=== PATIENT | male | born 1940 | race Caucasian/White ===

== ENCOUNTER 2016-03-24 04:44 | Emergency (ER) | payer BC, MEDICARE ==
[~2016-03-24] VITALS: Ht 188 cm; Wt 85.0 kg
[~2016-03-24 04:44] MED LIST: AGGR20025 PO; ATOR20TA42 PO; HYDR-2768 PO; LORTA5 PO; OMEGCAP21 PO; OMEP20TA39 PO; RAMI10CA35 PO; RAMI5CAP36 PO
[2016-03-24 04:46] VITALS: BP 175/94; PULSE 87; RESP 20; TEMP 97.7; O2SAT 96
[2016-03-24] MEDS ORDERED: ATOR20TA15 PO (04:52)
[2016-03-24] MEDS ORDERED: DIPY25TA25 PO (04:52)
[2016-03-24] MEDS ORDERED: ASCO500C PO (04:53)
[2016-03-24] MEDS ORDERED: HYDR25TA5 PO (04:53)
[2016-03-24] MEDS ORDERED: CALCTAB80 PO (04:53)
[2016-03-24] MEDS ORDERED: GLUC750C PO (04:53)
[2016-03-24] MEDS ORDERED: FISHCAP4 PO (04:54)
[2016-03-24] MEDS ORDERED: AMLO5TAB2 PO (04:54)
[2016-03-24] MEDS ORDERED: OMEP20TA PO (04:54)
[2016-03-24] MEDS ORDERED: MULT1TAB85 PO (04:54)
[2016-03-24] MEDS ORDERED: LOPERAMIDE HCL 2 MG CAP PO ONE (05:00)
[2016-03-24] MEDS ORDERED: ONDANSETRON HCL 4 MG/2 ML VIAL IV ONE (05:00)
[2016-03-24] MEDS ORDERED: DICYCLOMINE HCL 10 MG CAP PO ONE (05:00)
[2016-03-24] MEDS ORDERED: SODIUM CHLOR 0.9% 1000 ML INJ 1,000 ML IV ONE ×2 (05:00)
[2016-03-24 05:42] LABS: AUTOMATED NEUTROPHIL # 10.2 TH/MM3 (1.8-7.7); BASOPHIL % 0.3 % (0.0-2.0); EOSINOPHIL % 0.3 % (0.0-4.0); HEMATOCRIT 50.4 % (39.0-51.0); HEMO FLAGS DIFF FINAL; LYMPH % 4.9 % (9.0-44.0); LYMPHOCYTE # 0.6 TH/MM3 (1.0-4.8); MEAN CELL VOLUME 95.6 FL (80.0-100.0); MEAN CORPUSCULAR HEMOGLOBIN 33.7 PG (27.0-34.0); MEAN CORPUSCULAR HGB CONC 35.3 % (32.0-36.0); MONO % 13.2 % (0.0-8.0); NEUT % 81.3 % (16.0-70.0); PLATELET COUNT 208 TH/MM3 (150-450); RED BLOOD COUNT 5.27 MIL/MM3 (4.50-5.90); RED CELL DISTRIBUTION WIDTH 12.7 % (11.6-17.2); WHITE BLOOD COUNT 12.5 TH/MM3 (4.0-11.0)
[2016-03-24 06:10] LABS: ALKALINE PHOSPHATASE 51 U/L (45-117); TOTAL BILIRUBIN ADULT 1.2 MG/DL (0.2-1.0)
[2016-03-24] MEDS ORDERED: BENT20TA PO (06:12)
[2016-03-24] MEDS ORDERED: LOPE2TAB3 PO (06:12)
[2016-03-24] MEDS ORDERED: ZOFR4TAB3 SL (06:12)
--- NOTE | 2016-03-24 06:12 | PD ---
HPI Chief Complaint: GI Complaint Time Seen by Provider: 04:48 Travel History International Travel<30 days: No Contact w/Intl Traveler<30days: No Traveled to known affect area: No History of Present Illness HPI 75-year-old man who presents emergent [place] nausea vomiting diarrhea ongoing for the past 2 days or so. He ate raw oysters night before the symptoms started. He's had sweats but no definite fever. He said abdominal cramping as well. His a history of an appendectomy. He does still have his gallbladder. No definite sick contacts. No other complaints. He otherwise had been feeling generally well and healthy. Denies any other new or worsening symptoms. No blood in his stool. Patient going to the bathroom about every hour or so. History Past Medical History Narrative Medical Hypertension on hyperlipidemia GERD Influenza Vaccination: No Social History Alcohol Use: Yes (clear rum daily 3-4 oz ) Tobacco Use: No Allergies-Medications (Allergen,Severity, Reaction): Coded Allergies: Contrast Media (Verified Allergy, Severe, Anaphylaxis, 03/24/16) Penicillin (Verified Allergy, Severe, THROAT CLOSES, 03/24/16) Reported Meds & Prescriptions Reported Meds & Active Scripts Active Bentyl (Dicyclomine HCl) 20 Mg Tab 20 Mg PO QID PRN Loperamide (Loperamide HCl) 2 Mg Tab 2 Mg PO DIRECTED PRN One tablet after each loose stool. Not to exceed 8 tablets per day. Zofran Odt (Ondansetron Odt) 4 Mg Tab 4 Mg SL Q8HR PRN May substitute non-ODT form. Reported Multivitamin Men (Multiple Vitamins W/ Minerals) 1 Tab Tab 1 Tab PO DAILY Fish Oil + D3 (Fish Oil-Cholecalciferol) 1,200-1,000 Mg-Unit Cap 1 Cap PO DAILY Omeprazole 20 Mg Tab 20 Mg PO DAILY Amlodipine (Amlodipine Besylate) 5 Mg Tab 5 Mg PO DAILY Vitamin C (Ascorbic Acid) 500 Mg Cap 500 Mg PO Glucosamine (Glucosamine Sulfate) 750 Mg Cap 750 Mg PO DAILY Calcium 1000 + D (Calcium Carbonate-Cholecalciferol) 1,000-800 Mg-Unit Tab 1 Tab PO Hydrochlorothiazide 25 Mg Tab 25 Mg PO DAILY Atorvastatin (Atorvastatin Calcium) 20 Mg Tab 20 Mg PO HS Dipyridamole 25 Mg Tab 25 Mg PO BID Review of Systems Except as stated in HPI: all other systems reviewed are Neg Physical Exam Narrative GENERAL: Well-appearing 75-year-old man, no acute distress. SKIN: Warm and dry. HEAD: Atraumatic. Normocephalic. CARDIOVASCULAR: Regular rate and rhythm. No murmur appreciated. RESPIRATORY: No accessory muscle use. Clear to auscultation. Breath sounds equal bilaterally. GASTROINTESTINAL: Abdomen soft, non-tender, nondistended. Hepatic and splenic margins not palpable. MUSCULOSKELETAL: No obvious deformities. No clubbing. No cyanosis. No edema. NEUROLOGICAL: Awake and alert. No obvious cranial nerve deficits. Motor grossly within normal limits. Normal speech. PSYCHIATRIC: Appropriate mood and affect; insight and judgment normal. Data Data Last Documented VS Vital Signs Date Time Temp Pulse Resp B/P Pulse Ox O2 Delivery O2 Flow Rate FiO2 03/24/16 04:46 97.7 87 20 175/94 96 Orders Complete Blood Count With Diff (03/24/16 04:52) Comprehensive Metabolic Panel (03/24/16 04:52) Iv Access Insert/Monitor (03/24/16 04:52) Sodium Chlor 0.9% 1000 Ml Inj (Ns 1000 M (03/24/16 05:00) Ondansetron Inj (Zofran Inj) (03/24/16 05:00) Loperamide (Imodium) (03/24/16 05:00) C Diff Toxin Pcr (03/24/16 04:52) Sodium Chlor 0.9% 1000 Ml Inj (Ns 1000 M (03/24/16 05:00) Dicyclomine (Bentyl) (03/24/16 05:00) Labs Laboratory Tests Test 03/24/16 05:25 White Blood Count 12.5 TH/MM3 Red Blood Count 5.27 MIL/MM3 Hemoglobin 17.8 GM/DL Hematocrit 50.4 % Mean Corpuscular Volume 95.6 FL Mean Corpuscular Hemoglobin 33.7 PG Mean Corpuscular Hemoglobin 35.3 % Concent Red Cell Distribution Width 12.7 % Platelet Count 208 TH/MM3 Mean Platelet Volume 9.5 FL Neutrophils (%) (Auto) 81.3 % Lymphocytes (%) (Auto) 4.9 % Monocytes (%) (Auto) 13.2 % Eosinophils (%) (Auto) 0.3 % Basophils (%) (Auto) 0.3 % Neutrophils # (Auto) 10.2 TH/MM3 Lymphocytes # (Auto) 0.6 TH/MM3 Monocytes # (Auto) 1.6 TH/MM3 Eosinophils # (Auto) 0.0 TH/MM3 Basophils # (Auto) 0.0 TH/MM3 CBC Comment DIFF FINAL Differential Comment Sodium Level 136 MEQ/L Potassium Level 4.1 MEQ/L Chloride Level 105 MEQ/L Carbon Dioxide Level 20.3 MEQ/L Anion Gap 11 MEQ/L Blood Urea Nitrogen 31 MG/DL Creatinine 1.54 MG/DL Estimat Glomerular Filtration 44 ML/MIN Rate Random Glucose 116 MG/DL Calcium Level 8.2 MG/DL Total Bilirubin 1.2 MG/DL Aspartate Amino Transf 45 U/L (AST/SGOT) Alanine Aminotransferase 49 U/L (ALT/SGPT) Alkaline Phosphatase 51 U/L Total Protein 8.6 GM/DL Albumin 4.1 GM/DL [facility] Medical Decision Making Medical Screen Exam Complete: Yes Emergency Medical Condition: Yes Interpretation(s) LABS: CBC unremarkable CMP remarkable for mildly elevated BUN and creatinine C. difficile pending Differential Diagnosis LABS: CBC remarkable for mild leukocytosis. CMP Narrative Course Medical decision making 75-year-old man with nausea vomiting copious watery diarrhea for 2 days. No risk for C. difficile. No recent antibiotic. No healthcare exposures. Looks otherwise well. Possible related to seafood exposure. Recommend supportive treatment. Diagnosis Primary Impression: Gastroenteritis Patient Instructions: General Instructions Additional Instructions: Follow-up with your primary doctor in the next 2-4 days. Take Zofran as needed for nausea or vomiting. Take loperamide as needed for diarrhea. Take Bentyl as needed for abdominal cramping. Return to the emergency department for any new or worsening symptoms. Med/Other Pt SpecificInfo: Prescription(s) given Scripts Dicyclomine (Bentyl)20 Mg Tab20 Mg PO QID PRN (ABDOMINAL CRAMPING) #20 TAB Prov:Lobito Asher MD 03/24/16 Loperamide 2 Mg Tab2 Mg PO DIRECTED PRN (DIARRHEA) #8 TAB One tablet after each loose stool. Not to exceed 8 tablets per day. Prov:Lobito Asher MD 03/24/16 Ondansetron Odt (Zofran Odt)4 Mg Tab4 Mg SL Q8HR PRN (Nausea/Vomiting) #15 TAB May substitute non-ODT form. Prov:Lobito Asher MD 03/24/16 Disposition: 01 DISCHARGE HOME Condition: Stable Lobito Asher MD Mar 24, 2016 06:12
[2016-03-24 06:24] LABS: ALT (GPT) 49 U/L (12-78); ANION GAP 11 MEQ/L (5-15); AST (GOT) 45 U/L (15-37); BICARBONATE 20.3 MEQ/L (21.0-32.0); BLOOD UREA NITROGEN 31 MG/DL (7-18); CHLORIDE 105 MEQ/L (98-107); GLOMERULAR FILTRATION RATE 44 ML/MIN (>89); SODIUM (NA) 136 MEQ/L (136-145)
[2016-03-24 06:25] LABS: POTASSIUM 4.1 MEQ/L (3.5-5.1)
[2016-03-24 08:30] LABS: C. DIFF EPI 027 PRESUMPTIVE NEGATIVE (NEGATIVE); C. DIFF TOXIN PCR NEGATIVE (NEGATIVE)
== END 2016-03-24 06:33 | disposition home or self-care (01) ==
LOC: NEPE 04:44
DX: K52.9 Noninfective gastroenteritis and colitis, unspecified (principal); I10 Essential (primary) hypertension; F10.10 Alcohol abuse, uncomplicated
CPT/HCPCS: 80053; 85025; 87493; 96361; 96374; 99284; J2405; J7030